=== PATIENT | male | born 1945 | race Caucasian/White ===

== ENCOUNTER 2018-05-25 19:08 | Emergency (ER) | payer MEDICARE, OTHER ==
[2018-05-25 19:32] VITALS: BP 142/63
[2018-05-25] MEDS ORDERED: DOXYcycline CAP(*) 100 MG PO ONE (19:51)
--- NOTE | 2018-05-25 20:12 | UC ---
Skin Complaint HPI - HPI Summary HPI Summary: Pt c/o Painful "bug bite" to right lateral upper thigh. Pt reports that he went to bed one night and woke with painful, erythematous bug bite that is getting increasingly tender. - History of Current Complaint Hx Obtained From: Patient Onset/Duration: Sudden Onset Skin Exposure Onset/Duration: Days Ago Timing: Constant Onset Severity: Mild Current Severity: Moderate Pain Intensity: 0 Pain Scale Used: 0-10 Numeric Character: Pain, Redness, Painful Aggravating Factor(s): Touch Alleviating Factor(s): Unknown Associated Signs & Symptoms: Positive: Tenderness Related History: Insect Bite/Sting <Mya Dwyer NP - Last Filed: 05/25/18 20:06> <Reyna Leon - Last Filed: 05/26/18 07:07> - History of Current Complaint Chief Complaint: UCSkin Time Seen by Provider: 05/25/18 19:37 Stated Complaint: INSECT BITE - Allergy/Home Medications Allergies/Adverse Reactions: Allergies Allergy/AdvReac Type Severity Reaction Status Date / Time No Known Allergies Allergy Verified 05/25/18 19:32 Review of Systems Constitutional: Negative Skin: Other - erythema, Eyes: Negative ENT: Negative Respiratory: Negative Cardiovascular: Negative Gastrointestinal: Negative Genitourinary: Negative Motor: Negative Neurovascular: Negative Musculoskeletal: Negative Neurological: Negative Psychological: Negative Is Patient Immunocompromised?: No All Other Systems Reviewed And Are Negative: Yes <Mya Dwyer NP - Last Filed: 05/25/18 20:06> PMH/Surg Hx/FS Hx/Imm Hx Previously Healthy: Yes - Surgical History Surgical History: Yes Surgery Procedure, Year, and Place: Appy. Gallbladder - Family History Known Family History: Positive: Cardiac Disease - Social History Occupation: Employed Full-time Lives: With Family Alcohol Use: Rare Substance Use Type: None Smoking Status (MU): Never Smoked Tobacco <Mya Dwyer NP Last Filed: 05/25/18 20:06> Physical Exam Triage Information Reviewed: Yes Appearance: Well-Appearing Vital Signs: Initial Vital Signs Temp 99.4 F 05/25/18 19:24 Pulse 61 05/25/18 19:24 Resp 18 05/25/18 19:24 BP 142/63 05/25/18 19:24 Pulse Ox 99 05/25/18 19:24 Vital Signs Reviewed: Yes Eye Exam: Normal ENT Exam: Normal Neck exam: Normal Respiratory: Positive: No respiratory distress Musculoskeletal Exam: Other Musculoskeletal: Positive: ROM Limited @ - generalized decreased ROM Neurological Exam: Normal Psychological Exam: Normal Skin Exam: Other - 5 cm in diameter erythematous area on right lateral mid thigh , no fluctuant mass palpable, 4 small purulent intact vessicles. <Mya Dwyer NP - Last Filed: 05/25/18 20:06> Vital Signs: Initial Vital Signs Temp 99.4 F 05/25/18 19:24 Pulse 61 05/25/18 19:24 Resp 18 05/25/18 19:24 BP 142/63 05/25/18 19:24 Pulse Ox 99 05/25/18 19:24 <Reyna Leon - Last Filed: 05/26/18 07:07> Course/Dx - Differential Diagnoses - Skin Complaint Differential Diagnoses: Cellulitis, MRSA - Diagnoses Provider Diagnoses: Cellulitis <Mya Dwyer NP - Last Filed: 05/25/18 20:06> Discharge - Sign-Out/Discharge Documenting (check all that apply): Discharge/Admit/Transfer - Billing Disposition and Condition Condition: STABLE Disposition: Home <Mya Dwyer NP - Jose Filed: 05/25/18 20:06> - Billing Disposition and Condition Condition: STABLE Disposition: Home <Reyna Leon - Last Filed: 05/26/18 07:07> - Discharge Plan Condition: Stable Disposition: HOME Prescriptions: DOXYcycline CAP(*) [DOXYcycline 100MG CAP(*)] 100 mg PO Q12H #20 cap Patient Education Materials: Cellulitis (ED) Referrals: Danny Richard MD [Primary Care Provider] - If Needed Additional Instructions: Please follow up with your PCP or return to clinic as needed. Attestation Statement User Type: Provider - I was available for consult. This patient was seen by the [facility]. The patient was not presented to, seen by, or examined by me. -Ning <Reyna Leon - Last Filed: 05/26/18 07:07>
== END 2018-05-25 20:01 | disposition home or self-care (01) ==
LOC: UCCORT 19:08
DX: L03.115 Cellulitis of right lower limb (principal)
CPT/HCPCS: 99212; A9270-GY; G0463

== ENCOUNTER 2018-08-29 11:13 | Emergency (ER) | payer MEDICARE, OTHER ==
[2018-08-29 12:26] VITALS: BP 167/83
--- NOTE | 2018-08-29 14:31 | UC ---
Skin Complaint HPI - HPI Summary HPI Summary: Pt c/o tender "ingrown hair", right mid, lateral back that has worsened over the last week. Pt states the wound is drainage that purulent, wound area is erythematous, mild swelling, tenderness. - History of Current Complaint Chief Complaint: UCSkin Time Seen by Provider: 08/29/18 13:19 Stated Complaint: SKIN COMPLAINT BACK Hx Obtained From: Patient Onset/Duration: Gradual Onset, Lasting Weeks, Still Present, Worse Since - since onset Skin Exposure Onset/Duration: Weeks Ago Timing: Constant Onset Severity: Mild Current Severity: Moderate Pain Intensity: 5 Pain Scale Used: 0-10 Numeric Location: Discrete - right mid lateral back Character: Swelling, Pain, Redness, Raised, Painful Aggravating Factor(s): Touch Alleviating Factor(s): OTC Creams/Salves Associated Signs & Symptoms: Positive: Drainage - purulent, Tenderness - Allergy/Home Medications Allergies/Adverse Reactions: Allergies Allergy/AdvReac Type Severity Reaction Status Date / Time No Known Allergies Allergy Verified 05/25/18 19:32 Home Medications: Home Medications Bp Med 08/29/18 [History] Heart Pill 08/29/18 [History] Insulin Glargine,Hum.rec.anlog [Lantus] 40 units INJ BID 08/29/18 [History Confirmed 08/29/18] Metformin HCl [Metformin HCl ER] 1,000 mg PO DAILY 08/29/18 [History Confirmed 08/29/18] Naproxen Sodium [Aleve] 220 mg PO DAILY 08/29/18 [History Confirmed 08/29/18] Prostate Pill 08/29/18 [History] Review of Systems Constitutional: Negative Skin: Other - abscess, drainage purulent Eyes: Negative ENT: Negative Respiratory: Negative Cardiovascular: Negative Gastrointestinal: Negative Genitourinary: Negative Motor: Negative Neurovascular: Negative Musculoskeletal: Negative Neurological: Negative Psychological: Negative Is Patient Immunocompromised?: No All Other Systems Reviewed And Are Negative: Yes PMH/Surg Hx/FS Hx/Imm Hx Previously Healthy: Yes - Surgical History Surgical History: Yes Surgery Procedure, Year, and Place: [place]y. Gallbladder - Family History Known Family History: Positive: Cardiac Disease - Social History Occupation: Retired Lives: With Family Alcohol Use: Rare Substance Use Type: None Smoking Status (MU): Never Smoked Tobacco Have You Smoked in the Last Year: No Physical Exam Triage Information Reviewed: Yes Appearance: Well-Appearing Vital Signs: Initial Vital Signs Temp 97.7 F 08/29/18 11:54 Pulse 49 08/29/18 11:54 Resp 21 08/29/18 11:54 BP 167/83 08/29/18 11:54 Pulse Ox 98 08/29/18 11:54 Vital Signs Reviewed: Yes ENT Exam: Normal Dental Exam: Normal Neck exam: Normal Respiratory: Positive: No respiratory distress Musculoskeletal Exam: Normal Neurological Exam: Normal Psychological Exam: Normal Skin Exam: Other - erythematous circular, ~ 3 cm diamater, mild swelling, tender, draining purulent drainage, right upper lateral, mid back. Course/Dx - Differential Diagnoses - Skin Complaint Differential Diagnoses: Cellulitis, MRSA - Diagnoses Provider Diagnoses: infected wound. abscess Discharge - Sign-Out/Discharge Documenting (check all that apply): Patient Departure All imaging exams completed and their final reports reviewed: No Studies - Discharge Plan Condition: Stable Disposition: HOME Prescriptions: DOXYcycline CAP(*) [DOXYcycline 100MG CAP(*)] 100 mg PO Q12H #20 cap Patient Education Materials: Abscess (ED) Forms: *Gen. Provider Communication Referrals: Danny Richard MD [Primary Care Provider] - If Needed - Billing Disposition and Condition Condition: STABLE Disposition: Home
--- NOTE | 2018-09-01 09:41 | UC ---
- Progress Note Progress Note: abscess culture : + MRSA please have the pt. stop Doxy will call in Bactrim DS x 10 days Discharge - Sign-Out/Discharge Documenting (check all that apply): Patient Departure All imaging exams completed and their final reports reviewed: No Studies - Discharge Plan Condition: Stable Disposition: HOME Prescriptions: DOXYcycline CAP(*) [DOXYcycline 100MG CAP(*)] 100 mg PO Q12H #20 cap Sulfamethox/Trimethoprim DS* [Bactrim DS 800/160 TAB*] 1 tab PO BID #20 tab Patient Education Materials: Abscess (ED) Forms: *Gen. Provider Communication Referrals: Danny Richard MD [Primary Care Provider] - If Needed - Billing Disposition and Condition Condition: STABLE Disposition: Home
== END 2018-08-29 13:40 | disposition home or self-care (01) ==
LOC: UCCORT 11:13
DX: L08.9 Local infection of the skin and subcutaneous tissue, unspecified (principal); B95.62 Methicillin resistant Staphylococcus aureus infection as the cause of diseases classified elsewhere; T81.4XXA Infection following a procedure, initial encounter
CPT/HCPCS: 87070; 87077; 87186; 87205; 87640; 87641; 99212; G0463

== ENCOUNTER 2019-06-20 08:09 | Emergency (ER) | payer MEDICARE, OTHER ==
[2019-06-20 08:31] VITALS: BP 194/81
--- NOTE | 2019-06-20 08:54 | UC ---
Skin Complaint HPI - HPI Summary HPI Summary: Patient is a 74 year old gentleman, who present today with left wrist swelling and pain for past 6 days. No trauma, gradually getting worse. He denies any history of gout. Pain is severe that he cannot move his wrist . Denies any fever, chills, chest pain or shortness of breath . Denies any abdominal pain , nausea or vomiting , diarrhea or constipation. He tried acetaminophen without relief. His BP is high today , he did not take his BP meds today . - History of Current Complaint Chief Complaint: UCUpperExtremity Time Seen by Provider: 06/20/19 08:31 Stated Complaint: LEFT ARM CONCERN Hx Obtained From: Patient Pain Intensity: 8 - Allergy/Home Medications Allergies/Adverse Reactions: Allergies Allergy/AdvReac Type Severity Reaction Status Date / Time No Known Allergies Allergy Verified 06/20/19 08:25 PMH/Surg Hx/FS Hx/Imm Hx - Additional Past Medical History Additional PMH: Past medical History: HTN, DM Past surgical history: cholecystectomy, appendectomy, tonsillectomy Family history: non-contributory Social history: rare alcohol, non smoker, no substance abuse. works as grape cutter at [employer] Previously Healthy: Yes - Surgical History Surgical History: Yes Surgery Procedure, Year, and Place: Cholecystectomy, Appendectomy, Tonsillectomy - Family History Known Family History: Positive: Cardiac Disease - Social History Alcohol Use: Rare Substance Use Type: None Smoking Status (MU): Never Smoked Tobacco Have You Smoked in the Last Year: No Review of Systems All Other Systems Reviewed And Are Negative: Yes Constitutional: Positive: Negative Skin: Positive: Negative Eyes: Positive: Negative ENT: Positive: Negative Respiratory: Positive: Negative Cardiovascular: Positive: Negative Gastrointestinal: Positive: Negative Genitourinary: Positive: Negative Motor: Positive: Negative Neurovascular: Positive: Negative Musculoskeletal: Positive: Arthralgia - left wirst, Decreased ROM - left wrist, Edema - left wrist Neurological: Positive: Negative Psychological: Positive: Negative Is Patient Immunocompromised?: No Physical Exam - Summary Physical Exam Summary: Physical Exam: Vital signs reviewed Const: Appears well. No signs of apparent distress present. Alert and oriented x 3. Musculo: Walks with a normal gait. Left wrist: swelling and significantly limited ROM , tender to palpate . Swelling is also noted in hand and distal forearm. Head/Face: Atraumatic, normocephalic on inspection. Eyes: EOMI and PERRLA in both eyes. ENT: Hearing normal Respiratory: Respirations are unlabored. CVS: Regular rate and Rhythm, S1S2 normal , no murmurs identified. Extremities: Peripheral circulation is grossly normal. Pulses 2+ Abdomen : Soft non tender Skin: No lesions or rash located on the upper extremities or on the lower extremities. Neuro: Cranial nerves II to XII intact, motor and sensory intact. DTR Intact bilaterally. Mood is normal. Affect is normal. Triage Information Reviewed: Yes Vital Signs: Initial Vital Signs Temp 98.8 F 06/20/19 08:22 Pulse 67 06/20/19 08:22 Resp 18 06/20/19 08:22 BP 194/81 06/20/19 08:22 Pulse Ox 96 06/20/19 08:22 Vital Signs Reviewed: Yes Course/Dx - Course Course Of Treatment: During the visit today, we discussed the findings with possible osteomyelitis and that he needs further testing and management with imagining and possble iv antibiotics. I called report to Renetta Dahl NP at [facility] and informed her of findings and need for further evaluation . Patient's grandson will drive him to ER. Vitals stable at discharge. Patient expressed understanding . - Diagnoses Provider Diagnosis: Swelling of joint, wrist, left Discharge - Sign-Out/Discharge Documenting (check all that apply): Patient Departure All imaging exams completed and their final reports reviewed: No Studies - Discharge Plan Condition: Stable Disposition: HOME-RECOMMEND TO ED Patient Education Materials: Wrist Injury (ED), Swollen Joint (ED) Referrals: Danny Richard MD [Primary Care Provider] - Additional Instructions: Please go to the ER immediately for further evaluation, report is called to ER. Patients blood pressure slightly high in Urgent care today , plan follow up with PCP for better control within a month . - Billing Disposition and Condition Condition: STABLE Disposition: Home-Recommend to ED
== END 2019-06-20 09:25 | disposition home health service (06) ==
LOC: UCCORT 08:09
DX: M25.432 Effusion, left wrist (principal); I10 Essential (primary) hypertension; E11.9 Type 2 diabetes mellitus without complications
CPT/HCPCS: 99212; G0463